=== PATIENT | male | born 1955 | race Two or more races ===

== ENCOUNTER 2017-11-10 07:23 | Outpatient (CLI) | payer OTHER | END 2017-11-10 11:13 | disposition home or self-care (01) | LOC: LAB 07:23 | DX: I10 Essential (primary) hypertension (principal); E11.9 Type 2 diabetes mellitus without complications; E03.8 Other specified hypothyroidism; E78.2 Mixed hyperlipidemia; N40.0 Benign prostatic hyperplasia without lower urinary tract symptoms; M81.0 Age-related osteoporosis without current pathological fracture ==

== ENCOUNTER 2020-12-15 10:57 | Outpatient (CLI) | payer OTHER | END 2020-12-15 11:03 | disposition home or self-care (01) | LOC: RAD 10:57 | PROVIDERS: ATTEND Internal Medicine Cardiovascular Disease | DX: M12.842 Other specific arthropathies, not elsewhere classified, left hand (principal) ==